=== PATIENT | male | born 1930 | race Two or more races ===

== ENCOUNTER 2018-05-15 16:44 | Emergency (ER) | payer OTHER ==
[~2018-05-15] VITALS: Ht 162.6 cm; Wt 63.5 kg
[~2018-05-15 16:44] MED LIST: CIPRO500 MG PO; COZAAR100 MG; FLAGYL500MG PO; GLUCOPHAGE XR500 MG; INTESTINEX1 CA1 PO; LANOXIN0.25 MG; PRADAXA150 MG; ULTRACET PO
== END 2018-05-15 22:06 | disposition home or self-care (01) ==
LOC: ER 16:44
DX: R19.7 Diarrhea, unspecified (principal); K62.5 Hemorrhage of anus and rectum